=== PATIENT | male | born 1995 | race African-American/Black ===

== ENCOUNTER 2025-05-05 18:49 | Emergency (ER) | payer SELFPAY ==
[~2025-05-05] VITALS: Ht 177.8 cm; Wt 75.0 kg
[2025-05-05 19:04] VITALS: O2SAT 98
[2025-05-05 20:03] LABS: BASOPHILS % 0.5 % (0.0-2.0); EOSINOPHILS % 0.6 % (0.0-5.0); HEMATOCRIT. 38.9 % (42.0-52.0); HEMOGLOBIN. 13.7 g/dL (14.0-18.0); LYMPHOCYTES % 25.6 % (20.0-50.0); MEAN PLATELET VOLUME 7.8 fl (7.4-10.4); MONOCYTES % 8.0 % (2.0-8.0); NEUTROPHILS % 65.3 % (40.0-76.0); PLATELET 252 x1000/uL (130-400); RED BLOOD CELL COUNT 5.39 mill/uL (4.7-6.1); RED CELL DISTRIBUTION WIDTH 15.6 % (11.6-14.6)
[2025-05-05 20:11] LABS: CREATININE 1.0 mg/dL (0.6-1.3); UREA NITROGEN BLOOD 7 mg/dL (9-23)
[2025-05-05] MEDS: ONDANSETRON 4MG ODT PO ONE (22:13)
[2025-05-05] MEDS: IBUPROFEN 600MG TABLET PO ONE (22:24)
[2025-05-05] MEDS ORDERED: IBUP-2028 MT (23:30)
[2025-05-05 23:44] VITALS: BP 141/63; PULSE 70; RESP 13; TEMP 36.7; O2SAT 98
== END 2025-05-05 23:58 | disposition home or self-care (01) ==
LOC: ER 18:49
DX: R51.9 Headache, unspecified (principal)
CPT/HCPCS: 99284; 71045; 80048; 85025; 36415; 82375; Q0162